=== PATIENT | female | born 1960 | race Caucasian/White ===

== ENCOUNTER → 2017-10-24 | Outpatient (CLI) | payer BC ==
--- NOTE | ~2017-10-24 | P ---
[facility] [place] [address] PROCEDURE REPORT Name: JANET CASTILLO Room #: [facility].#: [id number] Admission: 10/24/17 Attend Phys: Sean Brody Discharge: Date of : 64 Report #: [id number] THIS REPORT FOR: //name// CC: Sean Mckeon MD DATE OF SERVICE: 10/24/2017 PROCEDURE PERFORMED: Colonoscopy. HISTORY OF PRESENT ILLNESS: The patient is a 57-year-old female who was seen in the office by myself on 09/25/2017 for intermittent bright red blood per rectum. Symptoms began approximately 5 months ago. She does complain of low pelvic and abdominal pain at times as well as fecal urgency. She underwent a trial of suppositories, which was helpful. Last colonoscopy in 2003 which was negative, but did show internal hemorrhoids apparently. Plan is for colonoscopy. DESCRIPTION OF PROCEDURE: The risks and benefits of the procedure were explained to the patient. Those risks including, but not limited to bleeding, perforation, the risk of sedation. She understood these risks and gave informed consent. Sedation was given using propofol per Anesthesia. Next, a digital rectal exam was initially performed which was normal. Next, using a standard Olympus colonoscope, the scope was placed in the patient's anus and advanced under direct vision to the cecum. The overall prep was good. The cecum and ileocecal valve were normal in appearance. The ascending, transverse, descending and sigmoid colon were all normal. The rectal mucosa was normal. No evidence of colitis or inflammation. No bleeding was noted. On retroflexion, a small internal hemorrhoid was noted. No evidence of bleeding. Close examination of the anal canal showed a small sentinel tag suggested the patient likely had a recent anal fissure, but there was no open fissure today. Scope was then withdrawn and the procedure terminated. The patient tolerated the procedure well. IMPRESSION: 1. Small internal hemorrhoids. 2. Old [place] tag suggesting a recent anal fissure, suspect this is likely source of recent intermittent bright red blood per rectum. RECOMMENDATIONS: 1. High fiber diet. 2. Analpram p.r.n. 3. Repeat colonoscopy in 10 years. [facility] [address] [place] [address] PROCEDURE REPORT Name: JANET CASTILLO Room #: [facility].#: [id number] Admission: 10/24/17 Attend Phys: Sean Brody Discharge: Date of : 64 Report #: [id number] Thank you for allowing me to participate in her care. <ELECTRONICALLY SIGNED> By: Sean Dior MD 10/26/17 0901 1032 27 Sean Dior MD /nt
== END | disposition home or self-care (01) ==
LOC: GI 08:59
DX: K64.8 Other hemorrhoids (principal); K62.5 Hemorrhage of anus and rectum; Z79.899 Other long term (current) drug therapy
CPT/HCPCS: 62110; 62900

== ENCOUNTER 2019-03-30 09:40 | Inpatient (IN) | payer BC ==
[~2019-03-30] VITALS: Ht 160 cm; Wt 90.7 kg
--- NOTE | ~2019-03-30 | H ---
[facility] [place] [address] HISTORY AND PHYSICAL Name: JANET CASTILLO Room #: 438-P ADM IN M.R.#: [id number] Admission: 03/30/19 Attend Phys: Ashwini Pearce MD Discharge: Date of : 64 Report #: [id number] THIS REPORT FOR: //name// CC: Ashwini Pearce DATE OF SERVICE: 03/30/2019 HISTORY OF PRESENT ILLNESS: This is a 58-year-old female doing the history and physical, came in yesterday and she was not in her room and was actually down getting her surgery done, but she apparently fell, twisting her right ankle and sustained a right ankle fracture that required surgical intervention. PAST MEDICAL HISTORY: Noteworthy for hypertension. MEDICATIONS: She takes phentermine, Reba, Singulair, lisinopril, metoprolol, Lexapro, simvastatin, levothyroxine, and albuterol. ALLERGIES: No known drug allergies. FAMILY HISTORY: Negative. SOCIAL HISTORY: Negative. REVIEW OF SYSTEMS: Negative. PHYSICAL EXAMINATION: GENERAL: Shows her in no distress. HEENT: Negative. NECK: Supple, without thyromegaly or adenopathy. CHEST: Clear. CARDIOVASCULAR: Showed a regular rate and rhythm without murmur. EXTREMITIES: The right ankle was wrapped in a brown Evin wrap. X-rays confirmed a nondisplaced trimalleolar fracture. ASSESSMENT: This is a patient who is for the most part, otherwise healthy, who has a trimalleolar fracture on the right and now is status post intervention and discussion about dismissal was took place today. By: 1125 1301 Paulino Oconnor MD /GERMÁN
[2019-03-30 09:40] VITALS: BP 166/62
[~2019-03-30 09:40] MED LIST: ESCITALOPRAM OX10 MG PO; LISINOPRIL10 MG PO; LOPRESSOR50 PO; SINGULAIR 10 MG10 M1 PO; SYNTHROID50 MCG PO; VENTOLIN HFA 1818 GM INH; ZOCOR20 MG PO
[2019-03-30] MEDS ORDERED: ALLEGRA ALLERG180 MG PO (10:11)
[2019-03-30] MEDS ORDERED: ADIPEX-P37.5 MG PO (10:12)
[2019-03-30 11:30] LABS: ABSOLUTE NEUTROPHILS 7.6 thou/uL (1.4-8.2); BASOPHILS 0.4 % (0.0-2.0); EOSINOPHILS 1.2 % (0.0-3.0); HEMATOCRIT 41.4 % (37.0-47.0); HEMOGLOBIN 13.6 gm/dL (12.0-15.0); LYMPHOCYTES 15.3 % (24.0-44.0); MCH 28.3 pg (26.0-34.0); MCHC 32.9 g/dL (28.0-37.0); MCV 86.2 fL (80.0-100.0); MONOCYTES 7.2 % (1.0-8.0); PLATELET COUNT 312 thou/uL (150-400); POLYS 75.9 % (36.0-66.0); RDW 13.6 % (10.5-14.5); WBC 10.1 thou/uL (4.0-11.0)
[2019-03-30 11:34] VITALS: BP 106/87
[2019-03-30 11:40] LABS: CALCIUM 10.2 mg/dL (8.5-10.1); CREATININE 0.9 mg/dL (0.6-1.0); POTASSIUM 4.3 mmol/L (3.5-5.1)
[2019-03-30 11:42] LABS: APTT 27.6 Seconds (24.5-32.8)
[2019-03-30 11:55] VITALS: BP 132/71
[2019-03-30 12:35] VITALS: BP 122/67
--- NOTE | 2019-03-30 15:14 | HC ---
[facility] [place] [address] CONSULTATION Name: JANET CASTILLO Room #: 438-P ADM IN M.R.#: [id number] Admission: 03/30/19 Attend Phys: Ashwini Pearce MD Discharge: Date of : 64 Report #: [id number] THIS REPORT FOR: //name// CC: Ashwini Pearce DATE OF SERVICE: 03/30/2019 CHIEF COMPLAINT: Right ankle fracture. HISTORY OF PRESENT ILLNESS: This 58-year-old female is generally healthy and active. She lives with her parents. She is working and stands on her feet most of the day. Today, she stumbled at home injuring the right ankle. X-rays in the Emergency Room reveal a trimalleolar right ankle fracture with minimal displacement. I have discussed this with the ER physician and with the patient. She and family feel her symptoms are too severe to allow discharge and too severe to consider nonsurgical management, even though the fractures are minimally displaced. She is anxious to go ahead with surgical repair hoping this will allow a more rapid recovery and return to activities and work. PREVIOUS MEDICAL HISTORY: Largely unremarkable. She has minor hypertension. She has no other significant medical problems. She denies any other significant injuries. FAMILY HISTORY: Noncontributory. REVIEW OF SYSTEMS: negative with exception of right ankle pain. PHYSICAL EXAMINATION: GENERAL: She is heavy and deconditioned, but otherwise appears to be healthy. NECK AND BACK: She has no complaints with regard to the neck or back or upper extremities. The neck and back reveal satisfactory alignment, range of motion without discomfort. EXTREMITIES: Both upper extremities reveal good range of motion at the shoulder, elbow, wrist and hand without discomfort. The pelvis and hips demonstrate satisfactory alignment, good range of motion without discomfort. The left lower extremity reveals good movement at the hip, knee and ankle without discomfort. The right lower extremity also reveals good movement at the hip and knee without discomfort. There is moderate generalized discomfort and tenderness about the right ankle. The ankle is well supported in a well-padded plaster splint, which I have not taken down at this time. The Emergency Room physician notes that there are no lacerations or any other skin problems. The ankle appears to be in good alignment. She has good movement of the toes and neurological and vascular status are normal. IMAGING: X-rays of the right ankle and foot reveal a trimalleolar ankle pattern, although with minimal displacement. The medial malleolus is [address] [address] CONSULTATION Name: JANET CASTILLO Room #: 438-P ADM IN .R.#: [id number] Admission: 03/30/19 Attend Phys: Ashwini Pearce MD Discharge: Date of : 64 Report #: [id number] essentially nondisplaced. The fibula has a long oblique slightly spiral fracture, which is displaced a few millimeters. The posterior malleolar fracture is difficult to see and is nondisplaced. IMPRESSION: I have discussed these issues at some great length with the patient and her parents who are with her. I have explained that the fracture is minimally displaced and therefore might be managed in a nonsurgical fashion; however, we have discussed that there is some possibility that fracture may shift or move with time, this will also require a period of nonweightbearing in a cast protection. She is concerned about a poor outcome or delayed healing and is therefore very anxious to go ahead with surgical repair. She notes she has already here and admitted to the hospital and I think this would be the best approach for her care. I think this is quite reasonable and we can proceed with plans for surgical repair. Pending OR availability, we may be able to proceed tomorrow. We will keep her n.p.o. after midnight and consider going ahead with ORIF of the right ankle fracture tomorrow if possible. <ELECTRONICALLY SIGNED> By: Cuong Allan MD 03/30/19 1514 [id number] [id number] Cuong Allan MD /nt
--- NOTE | 2019-03-30 16:02 | NUR ---
Patient arrived from ER with parents. A&O, clam and pleasant; complained of pain in right ankle, pain medicaion given and work. Patient is on regular diet, will be NPO for tomorrow. Consent of ORIF and blood transfusion signed,both documents are in the chart. vss, no fever.
[2019-03-30 16:16] VITALS: BP 132/65
[2019-03-30 19:20] VITALS: BP 136/77
[2019-03-31] VITALS (9 sets, daily range): BP systolic 122–140; BP diastolic 72–81
--- NOTE | 2019-03-31 04:09 | NUR ---
ASSUMED CARE OF PT AT 1900 PT ASSESSED AT START OF SHIFT A&OX4 FOR THIS NURSE. WITH C/O PAIN IN LFT ANKLE PAIN MEDS GIVEN SEE EMAR AND ICE PACK PLACED ON FOOT. PT UP WITH ASSISTX1 TO BSC DUE TO URINE URGENCY. NPO AFTER MIDNIGHT FOR AN ORIF. HOME MEDS RESTATRTED. CALL LIGHT WITHIN REACH AND FALL PREC IN PLACE WILL CONT TO MONITOR TILL EOS.
--- NOTE | 2019-03-31 15:43 | NUR ---
PT ADMITTED RELATED TO TRIMALLEOLAR FX. CM REVIEWED CHART AND SPOKE WITH CARE TEAM. CM MET WITH PT AT BEDSIDE THIS DAY. PT IS A&O X4. CM ROLE INTRODUCED. PT INDICATED SHE LIVES ALONE IN A HOUSE WITH 2 STEPS TO ENTER AND ALL NEEDS ON LEVEL ONCE INSIDE. 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 PT INDICATED NO DME OR HH HX. PT INDICATED SHE HOPES TO BE ABLE TO RETURN HOME ONCE MEDICALLY STABLE. CM TO FOLLOW INDICATED WITH DC PLANNING.
[2019-04-01 03:18] VITALS: BP 116/58
--- NOTE | 2019-04-01 05:23 | NUR ---
ASSUMED CARE OF PT @1900 PT ASSESSED AT START OF SHIFT WITH C/O PAIN IN RT ANKLE AND IV COMING OUT. PAIN MEDS GIVEN AND NEW IV INSERTED IN LFT FOREARM. IV FLUIDS INFUSING. PT HAS URINE FREQ AND URGENCY UP WITH ASSITX1 TO BSC. FALL PREC IN PLACE, CALL LIGHT WITHIN REACH WILL CONT WITH POC TILL EOS
[2019-04-01 06:09] LABS: ABSOLUTE NEUTROPHILS 9.1 thou/uL (1.4-8.2); BASOPHILS 0.1 % (0.0-2.0); HEMATOCRIT 36.1 % (37.0-47.0); HEMOGLOBIN 11.7 gm/dL (12.0-15.0); LYMPHOCYTES 12.7 % (24.0-44.0); MCH 28.1 pg (26.0-34.0); MCHC 32.3 g/dL (28.0-37.0); MONOCYTES 9.2 % (1.0-8.0); PLATELET COUNT 296 thou/uL (150-400); RBC 4.16 mil/uL (4.20-5.00); RDW 13.6 % (10.5-14.5); WBC 11.7 thou/uL (4.0-11.0)
[2019-04-01 06:21] LABS: CALCIUM 9.4 mg/dL (8.5-10.1); CREATININE 0.9 mg/dL (0.6-1.0); POTASSIUM 4.2 mmol/L (3.5-5.1)
[2019-04-01 07:45] VITALS: BP 118/63
--- NOTE | 2019-04-01 11:30 | NUR ---
PT. CARE ASSUMED 0700. A&Ox4. CALL LIGHT IN REACH. PAIN MANAGED WELL. PT. PENDING DISCHARGE OF PT. EVALUATION. POST OP DAY 2. PEDAL PULSES STRONG. NO EDEMA PRESENT. SCD'S IN PLACE. PT. DECLINED NEBULIZER TREATMENTS STATES SHE WILL USE HER INHALER IF NEEDED. PT IS UP TO THE BED SIDE COMMODE.
--- NOTE | 2019-04-01 12:29 | NUR ---
PT. NOTES FOR 03/31/19 ASSUMED PT CARE AT 0700. PT A&Ox4. CALL LIGHT IN REACH. PT. WENT FOR SURGERY AT 0830 AND CAME BACK AT 1230. PT RECEIVED ONE PLATE AND SIX SCREWS WITH A CAST. PT. HAS A PAIN BLOCK AND IS TREATET WITH MORPHINE AND HYDROCODONE. PAIN MANAGED WELL. PT TOLERATED CLEAR LIQUID DIET WELL AND CAN ADVANCE TO A REGULAR DIET. PT HAS HAD OUTPUT AND IS DRINKING WELL.
--- NOTE | 2019-04-01 12:47 | O ---
[facility] [place] [address] OPERATIVE REPORT Name: JANET CASTILLO Room #: 438-P ADM IN M.R.#: [id number] Admission: 03/30/19 Attend Phys: Ashwini Pearce MD Discharge: Date of : 64 Report #: [id number] THIS REPORT FOR: //name// CC: Ashwini Pearce DATE OF SERVICE: 03/31/2019 PREOPERATIVE DIAGNOSIS: Right bimalleolar ankle fracture. POSTOPERATIVE DIAGNOSIS: Right bimalleolar ankle fracture. PROCEDURE: Open reduction and internal fixation, right bimalleolar ankle fracture. SURGEON: Cuong Allan MD INDICATIONS: This 58-year-old female is somewhat heavy and deconditioned. She fell, injuring the right ankle. X-rays reveal a bimalleolar fracture pattern with minimal displacement of the medial malleolus and mild displacement of a long oblique spiral fracture on the fibula. We discussed treatment options and she prefers surgical repair. DESCRIPTION OF PROCEDURE: The patient was taken to the operating room where she was placed under general anesthesia. Prophylactic intravenous antibiotics were administered. The right leg and foot were meticulously prepped and draped and a thigh tourniquet inflated to 300 mmHg. Attention was first directed to the medial side. A small skin incision was made just distal to the medial malleolus. The fracture was visualized with C-arm and found to be tipped only slightly. A smooth guidewire was placed in good position and then a 46 mm cannulated 3.5 screw was applied over the guidewire. This engaged good metaphyseal bone and seemed to secure the medial malleolus fracture in anatomic alignment with good secure fixation. Attention was then directed laterally. A longitudinal skin incision was made exposing the distal 6-8 cm of fibula. A long oblique fracture was identified. It was gently irrigated and reduced and secured with bone clamps. A 6-hole one-third tubular plate was applied and secured with 6 screws. The position of plate and screws was checked with C-arm and felt to be satisfactory. The fracture is in anatomic position and appears to be well secured. The tourniquet was deflated. Good hemostasis was confirmed. Both wounds were thoroughly irrigated. The medial wound required only skin shaq. The lateral wound was closed with 2-0 Monocryl in the fascia and subcutaneous tissues and shaq in the skin. A sterile dressing with a very well-padded plaster splint was applied holding the foot and ankle in neutral position. The patient was awakened and returned to recovery room in good condition. She is somewhat [place] [phone] OPERATIVE REPORT Name: JANET CASTILLO Room #: 438-P [facility] IN M.R.#: [id number] Admission: 03/30/19 Attend Phys: Ashwini Pearce MD Discharge: Date of : 64 Report #: [id number] anxious and painful and will require a good deal of assistance through physical therapy before discharge. Consequently, I doubt that she will be able to go home today, but we are hoping for discharge tomorrow or the following day when appropriate arrangements can be made. I would anticipate seeing her back in 2 weeks for suture removal. <ELECTRONICALLY SIGNED> By: Cuong Allan MD 04/01/19 1247 1117 1147 Cuong Allan MD /nt
[2019-04-01 13:05] VITALS: BP 118/63
--- NOTE | 2019-04-01 16:27 | NUR ---
PHYSICIAN INDICATED THAT PT IS MEDICALLY STABLE TO DISCHARGE HOME THIS DAY. PT IS TO DC HOME WITH SELF CARE AND FAMILIAL SUPPORT. PT WAS ISSUED A FWW BY [facility]. NO OTHER CM INTERVETNION INDICATED. CASE CLOSED.
== END 2019-04-01 15:31 | disposition home or self-care (01) | DRG 494 ==
LOC: ER 09:40 → EROBS 11:09 → 4S 11:09
PROVIDERS: Emergency Medicine; ADMIT Internal Medicine
PROC: 0QSG04Z Reposition Right Tibia with Internal Fixation Device, Open Approach (ICD-10-PCS; principal; 2019-03-31)
DX: S82.851A Displaced trimalleolar fracture of right lower leg, initial encounter for closed fracture (principal); I10 Essential (primary) hypertension; W18.39XA Other fall on same level, initial encounter; Y93.89 Activity, other specified; Y92.89 Other specified places as the place of occurrence of the external cause; Y99.8 Other external cause status
CPT/HCPCS: 10195; 50010; 50101; 50348; 50386; 51122; 51131; 51210; 51412; 56525; 56667; 57091; 57181; 62110; 62900; 70005